=== PATIENT | male | born 1985 | race Caucasian/White ===

== ENCOUNTER 2020-05-30 05:57 | Inpatient (IN) | payer BC ==
[2020-05-26 09:33] LABS: BASOPHILS # (AUTO) 0.1 (0.0-0.1); BASOPHILS % 0.5 % (0.0-1.0); EOSINOPHILS # (AUTO) 0.2 (0.0-0.4); EOSINOPHILS % 1.8 % (0.0-6.0); HEMATOCRIT 47.1 % (38.2-49.6); HEMOGLOBIN 14.8 g/dL (14.0-18.0); LYMPHOCYTES # (AUTO) 2.5 (1.0-3.2); LYMPHOCYTES % 25.4 % (18.0-39.1); MEAN CORPUSCULAR HEMOGLOBIN 25.1 pg (28-32); MEAN CORPUSCULAR HGB CONC 31.4 g/dL (31-35); MONOCYTES # (AUTO) 0.8 (0.2-0.8); MONOCYTES % 7.7 % (4.4-11.3); NEUTROPHILS # (AUTO) 6.4 (2.1-6.9); NEUTROPHILS % 64.3 % (38.7-80.0); PLATELET COUNT 448 x10e3/uL (140-360); RED BLOOD COUNT 5.89 x10e6/uL (4.3-5.7); RED CELL DISTRIBUTION WIDTH 14.5 % (11.7-14.4)
[~2020-05-30] VITALS: Ht 180.3 cm; Wt 166.0 kg
[2020-05-30] MEDS ORDERED: LEVOFLOXACIN 500MG/D5W 100ML 100 ML IV ONE (06:22)
[2020-05-30] MEDS ORDERED: BUPIVACAINE 0.25% 30ML SDV ONE (07:13)
[2020-05-30] MEDS ORDERED: ACETAMINOPHEN 1000 MG/100 ML 100 ML IV ONE (08:26)
[2020-05-30] MEDS ORDERED: SCOPOLAMINE 1.5 MG PATCH ONE (08:27)
[2020-05-30] MEDS ORDERED: ONDANSETRON HCL INJ 2MG/ML 2ML 2 MG/ML VIAL ONE ×2 (09:40→12:53)
[2020-05-30] MEDS ORDERED: METOCLOPRAMIDE HCL 10 MG/2ML VIAL ONE (09:40)
[2020-05-30] MEDS ORDERED: FENTANYL CITRATE/PF 100MCG/2 ML INJ ONE ×2 (09:47→12:58)
[2020-05-30] MEDS ORDERED: PROMETHAZINE HCL (IM) 25 MG/ML VIAL IM ONE (09:49)
[2020-05-30] MEDS ORDERED: PANTOPRAZOLE 40 MG 10ML VIAL ONE (10:05)
[2020-05-30] MEDS ORDERED: PANTOPRAZOLE 40 MG 10ML VIAL IV STA (10:06)
[2020-05-30] MEDS ORDERED: MORPHINE SULFATE INJ 2 MG/ML SYR IV PRN (10:15)
[2020-05-30] MEDS ORDERED: PROMETHAZINE 12.5MG/ NACL 0.9% 12.5 MG/50 ML BAG IV PRN (10:15)
[2020-05-30 11:12] VITALS: BP 170/88
[2020-05-30 11:15] VITALS: BP 170/88
[2020-05-30] MEDS ORDERED: PANTOPRAZOLE 40 MG 10ML VIAL IV ONE (11:15)
[2020-05-30 11:20] VITALS: BP 170/88
[2020-05-30] MEDS: SODIUM CHLORIDE 0.9% 1000ML 1,000 ML IV SCH ×2 (12:13→19:00)
[2020-05-30] MEDS: ONDANSETRON HCL INJ 2MG/ML 2ML 2 MG/ML VIAL IV PRN ×2 (12:23→19:52)
[2020-05-30] MEDS ORDERED: DEXAMETHASONE SOD PHOS INJ 4 MG/ML VIAL ONE (12:53)
[2020-05-30] MEDS ORDERED: SUCCINYLCHOLINE CHLORIDE 20 MG/ML 10ML VIAL ONE (12:53)
[2020-05-30] MEDS ORDERED: LIDOCAINE HCL 2% LOCAL INJ 5 ML SDV VIAL INJ ONE (12:53)
[2020-05-30] MEDS ORDERED: PROPOFOL IV EMULSION 10 MG/ML 20 ML VIAL ONE (12:53)
[2020-05-30] MEDS ORDERED: ROCURONIUM BROMIDE 10 MG/ML 5ML VIAL IV ONE (12:53)
[2020-05-30] MEDS ORDERED: SEVOFLURANE INHAL SOLN 250 ML PEN BTL ONE (12:53)
[2020-05-30] MEDS ORDERED: MIDAZOLAM HCL 2 MG/2 ML VIAL ONE (12:58)
[2020-05-30 14:41] LABS: BASOPHILS % 0.2 % (0.0-1.0); HEMATOCRIT 49.5 % (38.2-49.6); HEMOGLOBIN 15.1 g/dL (14.0-18.0); LYMPHOCYTES # (AUTO) 0.4 (1.0-3.2); LYMPHOCYTES % 2.3 % (18.0-39.1); MEAN CORPUSCULAR HGB CONC 30.5 g/dL (31-35); MONOCYTES # (AUTO) 0.3 (0.2-0.8); MONOCYTES % 1.6 % (4.4-11.3); NEUTROPHILS # (AUTO) 18.4 (2.1-6.9); NEUTROPHILS % 95.4 % (38.7-80.0); PLATELET COUNT 342 x10e3/uL (140-360); RED BLOOD COUNT 6.04 x10e6/uL (4.3-5.7); RED CELL DISTRIBUTION WIDTH 14.5 % (11.7-14.4)
[2020-05-30 15:02] LABS: ANION GAP 21.9 mmol/L (8-16); BLOOD UREA NITROGEN 13 mg/dL (7-26); BUN/CREATININE RATIO 12 (6-25); CALCIUM 9.3 mg/dL (8.4-10.2); CARBON DIOXIDE 18 mmol/L (22-29); CHLORIDE 101 mmol/L (98-107); EST GLOMERULAR FILTRATION RATE > 60 ML/MIN (60-); GLUCOSE 139 mg/dL (74-118); POTASSIUM 3.9 mmol/L (3.5-5.1); SODIUM 137 mmol/L (136-145)
[2020-05-30 15:46] VITALS: BP 160/101
[2020-05-30] MEDS: PANTOPRAZOLE 40 MG 10ML VIAL IV SCH (16:33)
[2020-05-30] MEDS ORDERED: CLONIDINE HCL 0.1 MG TAB PO PRN (16:45)
[2020-05-30 18:09] LABS: INR 1.13; PROTHROMBIN TIME 15.2 seconds (11.9-14.5)
[2020-05-30 20:00] VITALS: BP 156/101
[2020-05-30] MEDS: HYDROCODONE/APAP 7.5MG-325MG 1 EA TAB PO PRN (20:10)
[2020-05-30 20:45] VITALS: BP 156/101
[2020-05-31] VITALS (8 sets, daily range): BP systolic 102–158; BP diastolic 75–91
[2020-05-31] MEDS: HYDROCODONE/APAP 7.5MG-325MG 1 EA TAB PO PRN ×3 (00:05→08:39)
[2020-05-31] MEDS: SODIUM CHLORIDE 0.9% 1000ML 1,000 ML IV SCH ×3 (03:00→19:52)
[2020-05-31] MEDS: ONDANSETRON HCL INJ 2MG/ML 2ML 2 MG/ML VIAL IV PRN ×4 (03:23→19:52)
[2020-05-31 05:10] LABS: BASOPHILS % 0.2 % (0.0-1.0); HEMATOCRIT 39.7 % (38.2-49.6); HEMOGLOBIN 12.6 g/dL (14.0-18.0); LYMPHOCYTES # (AUTO) 1.3 (1.0-3.2); LYMPHOCYTES % 5.2 % (18.0-39.1); MEAN CORPUSCULAR HEMOGLOBIN 25.3 pg (28-32); MEAN CORPUSCULAR HGB CONC 31.7 g/dL (31-35); MEAN CORPUSCULAR VOLUME 79.6 fL (81-99); MONOCYTES # (AUTO) 1.4 (0.2-0.8); MONOCYTES % 5.7 % (4.4-11.3); NEUTROPHILS # (AUTO) 22.4 (2.1-6.9); NEUTROPHILS % 88.1 % (38.7-80.0); PLATELET COUNT 508 x10e3/uL (140-360); RED BLOOD COUNT 4.99 x10e6/uL (4.3-5.7); RED CELL DISTRIBUTION WIDTH 14.7 % (11.7-14.4)
[2020-05-31 05:30] LABS: MAGNESIUM 1.8 MG/DL (1.3-2.1); PHOSPHORUS 3.9 MG/DL (2.3-4.7)
[2020-05-31 07:50] LABS: ALANINE AMINOTRANSFERASE 18 IU/L (0-55); ALBUMIN 3.7 g/dL (3.5-5.0); ALKALINE PHOSPHATASE 80 IU/L (40-150); ANION GAP 19.3 mmol/L (8-16); BLOOD UREA NITROGEN 13 mg/dL (7-26); BUN/CREATININE RATIO 10 (6-25); CALCIUM 9.1 mg/dL (8.4-10.2); CARBON DIOXIDE 18 mmol/L (22-29); CHLORIDE 102 mmol/L (98-107); CREATININE, SERUM 1.26 mg/dL (0.72-1.25); EST GLOMERULAR FILTRATION RATE > 60 ML/MIN (60-); GLUCOSE 144 mg/dL (74-118); POTASSIUM 4.3 mmol/L (3.5-5.1); SODIUM 135 mmol/L (136-145)
[2020-05-31] MEDS ORDERED: CEFTRIAXONE SOD 1 GM/50 ML BAG IV SCH (08:15)
[2020-05-31] MEDS: PANTOPRAZOLE 40 MG 10ML VIAL IV SCH ×2 (08:39→17:11)
[2020-05-31] MEDS ORDERED: MORPHINE SULFATE INJ 2 MG/ML SYR IV PRN (09:00)
[2020-05-31] MEDS: CEFTRIAXONE SOD 1 GM in SODIUM CHLORIDE 0.9% 50ML 50 ML IV SCH ×2 (09:57→21:17)
[2020-05-31] MEDS: DOCUSATE SODIUM 100 MG CAP PO SCH (17:11)
[2020-06-01] MEDS: ONDANSETRON HCL INJ 2MG/ML 2ML 2 MG/ML VIAL IV PRN ×3 (00:11→08:43)
[2020-06-01] MEDS: SODIUM CHLORIDE 0.9% 1000ML 1,000 ML IV SCH (03:08)
[2020-06-01 05:52] LABS: BASOPHILS % 0.2 % (0.0-1.0); HEMATOCRIT 35.7 % (38.2-49.6); HEMOGLOBIN 11.2 g/dL (14.0-18.0); LYMPHOCYTES # (AUTO) 2.1 (1.0-3.2); LYMPHOCYTES % 12.7 % (18.0-39.1); MEAN CORPUSCULAR HEMOGLOBIN 25.5 pg (28-32); MEAN CORPUSCULAR HGB CONC 31.4 g/dL (31-35); MEAN CORPUSCULAR VOLUME 81.3 fL (81-99); MONOCYTES # (AUTO) 1.7 (0.2-0.8); MONOCYTES % 10.3 % (4.4-11.3); NEUTROPHILS # (AUTO) 12.6 (2.1-6.9); NEUTROPHILS % 76.3 % (38.7-80.0); PLATELET COUNT 344 x10e3/uL (140-360); RED BLOOD COUNT 4.39 x10e6/uL (4.3-5.7); RED CELL DISTRIBUTION WIDTH 14.9 % (11.7-14.4)
[2020-06-01 06:17] LABS: ALANINE AMINOTRANSFERASE 14 IU/L (0-55); ALBUMIN 3.4 g/dL (3.5-5.0); ALBUMIN/GLOBULIN RATIO 1.1 (0.8-2.0); ALKALINE PHOSPHATASE 66 IU/L (40-150); ANION GAP 17.3 mmol/L (8-16); BLOOD UREA NITROGEN 15 mg/dL (7-26); BUN/CREATININE RATIO 13 (6-25); CALCIUM 8.9 mg/dL (8.4-10.2); CARBON DIOXIDE 22 mmol/L (22-29); CHLORIDE 104 mmol/L (98-107); EST GLOMERULAR FILTRATION RATE > 60 ML/MIN (60-); GLUCOSE 105 mg/dL (74-118); POTASSIUM 4.3 mmol/L (3.5-5.1); SODIUM 139 mmol/L (136-145)
[2020-06-01] MEDS ORDERED: HYDROCODON-ACE1 EA12 PO (07:53)
[2020-06-01 07:56] VITALS: BP 121/68
[2020-06-01 07:58] VITALS: BP 121/68
[2020-06-01] MEDS: PANTOPRAZOLE 40 MG 10ML VIAL IV SCH ×2 (08:43→09:00)
[2020-06-01] MEDS: CEFTRIAXONE SOD 1 GM in SODIUM CHLORIDE 0.9% 50ML 50 ML IV SCH ×2 (08:43→09:00)
[2020-06-01] MEDS: DOCUSATE SODIUM 100 MG CAP PO SCH (08:43)
[2020-06-01] MEDS ORDERED: ONDANSETRON ODT8 MG PO (08:53)
[2020-06-01] MEDS ORDERED: COLACE100 MG PO (08:53)
[2020-06-01] MEDS ORDERED: PROTONIX20 MG PO (08:54)
[2020-06-01] MEDS ORDERED: ONDANSETRON HCL 4 MG ORAL DISINTEGRATING TAB PO ONE (10:00)
== END 2020-06-01 10:12 | disposition home or self-care (01) | DRG 619 ==
LOC: OR 05:57 → PACU V 09:37 → MED/SURG 10:41
PROVIDERS: ADMIT Internal Medicine; ATTEND Internal Medicine
PROC: 0DB64Z3 Excision of Stomach, Percutaneous Endoscopic Approach, Vertical (ICD-10-PCS; principal; 2020-05-30 08:00)
DX: E66.01 Morbid (severe) obesity due to excess calories (principal); K29.61 Other gastritis with bleeding; D68.9 Coagulation defect, unspecified; K91.870 Postprocedural hematoma of a digestive system organ or structure following a digestive system procedure; K95.89 Other complications of other bariatric procedure; Z68.43 Body mass index [BMI] 50.0-59.9, adult; M19.90 Unspecified osteoarthritis, unspecified site; K21.9 Gastro-esophageal reflux disease without esophagitis; G47.33 Obstructive sleep apnea (adult) (pediatric); M17.0 Bilateral primary osteoarthritis of knee; T39.315A Adverse effect of propionic acid derivatives, initial encounter; K76.0 Fatty (change of) liver, not elsewhere classified; Z20.822 Contact with and (suspected) exposure to COVID-19
CPT/HCPCS: 36415; 76705; 80048; 80053; 82948; 83735; 84100; 85025; 85610; 85730; J0330; J0696; J1100; J1956; J2001; J2250; J2270; J2405; J2550; J2765; J3010; J7030; Q0162; U0002